=== PATIENT | female | born 1950 | race Caucasian/White ===

== ENCOUNTER 2019-09-05 00:55 | Day surgery (SDC) | payer MEDICARE, SELFPAY ==
[2019-08-30 14:41] VITALS: BMI 42.7
[2019-09-05 10:20] VITALS: BP 166/90; PULSE 80; RESP 20; TEMP 36.4; O2SAT 93
[2019-09-05] MEDS: LACTATED RINGERS 1,000 ML 150 ML IV CONT (10:32)
--- NOTE | 2019-09-05 10:38 | WPDANESEPPF ---
Anes - Initial Pre Proc Eval Procedure: Operation Date: 09/05/19 11:00 Proposed Procedures p Esophagogastroduodenoscopy - Jose Hagen DO Date/Time: 09/05/19 10:38 Surgeon: Jose Hagen DO Pre Op Diagnosis: Anemia/ Fatigue Patient Data Age: 69 Gender: F Height: 1.57 m Weight: 107.8 kg Last Vital Signs Temp 36.4 C 09/05/19 10:20 Pulse 80 09/05/19 10:20 Resp 20 09/05/19 10:20 BP 166/90 H 09/05/19 10:20 Pulse Ox 93 09/05/19 10:20 Allergies Allergy/AdvReac Type Severity Reaction Status Date / Time hydrocodone Allergy Mild Nausea and Verified 09/05/19 10:14 Vomiting doxycycline Allergy Unknown RASH Verified 09/05/19 10:14 levofloxacin Allergy Unknown HIVES Verified 09/05/19 10:14 moxifloxacin Allergy Unknown HIVES Verified 09/05/19 10:14 Home Medications Medication Instructions Recorded Confirmed Type montelukast 10 mg tablet 10 mg PO DAILY #90 tablet 05/14/19 09/05/19 Rx latanoprost 0.005 % eye drops 1 drop EACH EYE DAILY 06/20/19 09/05/19 History fluticasone 250 mcg-salmeterol 50 1 inhalation INHALATION BID #60 08/01/19 09/05/19 Rx mcg/dose blistr powdr for each inhalation ferrous sulfate 325 mg (65 mg See Rx Instructions .ROUTE 08/23/19 09/05/19 Rx iron) tablet .COMPLEX #60 tablet calcium carbonate-vitamin D3 600 1 cap PO .COMPLEX cap 08/28/19 09/05/19 History mg (1,500 mg)-400 unit capsule guaifenesin 1,200 mg tablet, 1,200 mg PO BID 08/28/19 09/05/19 History extended release 12 hr omeprazole magnesium 20 mg 20 mg PO DAILY 08/28/19 09/05/19 History tablet,delayed release psyllium husk [Metamucil] 1 tbsp PO BID 08/30/19 09/05/19 History acetaminophen 500 mg tablet 500 mg PO Q6H PRN 09/03/19 09/05/19 History albuterol sulfate 90 mcg/actuation 1 inhalation INHALATION Q4H PRN 30 09/03/19 09/05/19 Rx aerosol inhaler Days #8.5 gm magnesium 250 mg tablet 400 mg PO DAILY tablet 09/03/19 09/05/19 History prednisone 10 mg tablet 10 mg PO DAILY #30 tablet 09/03/19 09/05/19 Rx vitamin E (dl, acetate) 200 unit 200 unit PO DAILY 09/03/19 09/05/19 History capsule Patient hx anesthesia problems: none Family hx anesthesia problems: none PMF[facility] Past Medical History Medical History (Updated 09/05/19 @ 10:38 by Saul Leo DO) COPD (chronic obstructive pulmonary disease) Gastro-esophageal reflux disease without esophagitis CONSUELO on CPAP Prediabetes Unspecified glaucoma Surgical History Surgical History H/O breast biopsy H/O section H/O dilation and curettage Hx of tonsillectomy Social History Social History Smoking packs per day: 3 Smoking cigarettes per day: 60.0 Years smoked: 30 Smoking pack-years: 90.00 Smoking status: Former smoker Smoking end date: 06/26/05 Alcohol intake: current Anes - Eval Final PreProcedure Day of Procedure 09/05/19 10:38 Patient weight: morbidly obese Heart: regular rate and rhythm Lungs: clear to auscultation and normal air movement Airway: Mallampati scale class II Neurological: alert and oriented Last oral intake: >/= 8 hours ASA classification: III Emergent: no Anesthetic plan: proceed Anesthesia type and monitoring: general GIVS and standard monitoring Informed Consent: The patient's anesthetic plan and its attendant risks and benefits were discussed with the patient/family/POA. Questions were solicited and answers provided to the satisfaction of the patient/family/POA.
--- NOTE | 2019-09-05 11:27 | PM.IMHP ---
H&P: HPI History of Present Illness Chief complaint: Anemia/ Fatigue Narrative: Reason for visit EGD. This very pleasant lady was seen at the request of the primary physician and with the patient's permission. Impression: GERD with breakthrough symptoms. The patient has history of anemia. Underlying peptic ulcer disease should be excluded. Irritable bowel syndrome. COPD. Obstructive sleep apnea. Glaucoma. Obesity. Prediabetes. Recommendation: EGD and colonoscopy. History: This very pleasant lady's being evaluated for history reflux disease. She is having breakthrough symptoms at times. The patient was found have a significant iron deficiency anemia. An EGD and colonoscopy were ordered. The patient does have episodes of retching constipation diarrhea has been diagnosed with irritable bowel syndrome. She denies any hematochezia, melena or acholic stools. She was found to be Hemoccult negative. The patient denies any fever, chills or weight loss. She does report dysphagia number pharyngeal area. The patient does have difficulty with wheezing at times. Physical examination: General: very pleasant patient in no acute distress. HEENT: Head was normocephalic sclerae is clear mouth without masses neck was supple. Heart: Rate rhythm regular without S3 or S4. Lungs: Decreased breath sounds bilaterally with expiratory wheezes. Abdomen: Soft with no guarding or rigidity. Bowel sounds were active. Neurologic: Cranial nerves 2 through 12 intact. No focal defects. No clonus. Musculoskeletal system: Revealed no joint tenderness or swelling no muscle atrophy. Extremities: Reveal no significant edema. Skin: Warm and dry with normal turgor. Mental status: intact. Patient is alert and oriented. Want to thank for allowing to participate in the care of this patient. Review of Systems Review of Systems: All systems reviewed & are unremarkable except as noted in HPI and below [facility] Past Medical History Medical History (Updated 09/05/19 @ 10:38 by Saul Leo DO) COPD (chronic obstructive pulmonary disease) Gastro-esophageal reflux disease without esophagitis CONSUELO on CPAP Prediabetes Unspecified glaucoma Surgical History Surgical History H/O breast biopsy H/O section H/O dilation and curettage Hx of tonsillectomy Social History Social History Smoking packs per day: 3 Smoking cigarettes per day: 60.0 Years smoked: 30 Smoking pack-years: 90.00 Smoking status: Former smoker Smoking end date: 06/26/05 Alcohol intake: current Meds Home Medications and Allergies Home Medications Medication Instructions Recorded Confirmed Type montelukast 10 mg tablet 10 mg PO DAILY #90 tablet 05/14/19 09/05/19 Rx latanoprost 0.005 % eye drops 1 drop EACH EYE DAILY 06/20/19 09/05/19 History fluticasone 250 mcg-salmeterol 50 1 inhalation INHALATION BID #60 08/01/19 09/05/19 Rx mcg/dose blistr powdr for each inhalation ferrous sulfate 325 mg (65 mg See Rx Instructions .ROUTE 08/23/19 09/05/19 Rx iron) tablet .COMPLEX #60 tablet calcium carbonate-vitamin D3 600 1 cap PO .COMPLEX cap 08/28/19 09/05/19 History mg (1,500 mg)-400 unit capsule guaifenesin 1,200 mg tablet, 1,200 mg PO BID 08/28/19 09/05/19 History extended release 12 hr omeprazole magnesium 20 mg 20 mg PO DAILY 08/28/19 09/05/19 History tablet,delayed release psyllium husk [Metamucil] 1 tbsp PO BID 08/30/19 09/05/19 History acetaminophen 500 mg tablet 500 mg PO Q6H PRN 09/03/19 09/05/19 History albuterol sulfate 90 mcg/actuation 1 inhalation INHALATION Q4H PRN 30 09/03/19 09/05/19 Rx aerosol inhaler Days #8.5 gm magnesium 250 mg tablet 400 mg PO DAILY tablet 09/03/19 09/05/19 History prednisone 10 mg tablet 10 mg PO DAILY #30 tablet 09/03/19 09/05/19 Rx vitamin E (dl, acetat
[2019-09-05] MEDS: BENZOCAINE (*SP) 60 ML SPRAY CAN (HURRICAINE) 1 SPRAY MUCOUS MEM (11:41)
[2019-09-05 12:02] VITALS: BP 147/84; PULSE 83; RESP 25; O2SAT 90
[2019-09-05 12:12] VITALS: BP 138/76; PULSE 72; RESP 22; O2SAT 100
--- NOTE | 2019-09-05 12:14 | SUR.PHASEII ---
Patient placed on simple face mask to help with coughing fits, anesthesia aware. Per patient recovering from bronchitis.
[2019-09-05 12:22] VITALS: BP 150/85; PULSE 84; RESP 18; O2SAT 99
[2019-09-05 12:32] VITALS: BP 144/83; PULSE 76; RESP 22; O2SAT 99
== END 2019-09-05 12:44 | disposition home or self-care (01) ==
PROVIDERS: PCP Family Medicine; Visit Provider Internal Medicine Gastroenterology
PROC: 0DJ08ZZ Inspection of Upper Intestinal Tract, Via Natural or Artificial Opening Endoscopic (ICD-10-PCS; CPT 43235; principal; 2019-09-05 11:00)
DX: D50.9 Iron deficiency anemia, unspecified (principal); K31.7 Polyp of stomach and duodenum; K44.9 Diaphragmatic hernia without obstruction or gangrene; K21.9 Gastro-esophageal reflux disease without esophagitis; J44.9 Chronic obstructive pulmonary disease, unspecified; G47.33 Obstructive sleep apnea (adult) (pediatric); R73.03 Prediabetes; H40.9 Unspecified glaucoma; Z87.891 Personal history of nicotine dependence; E66.01 Morbid (severe) obesity due to excess calories; Z68.41 Body mass index [BMI] 40.0-44.9, adult
CPT/HCPCS: 43239; 43450; 87081; 88305; J2704; J7120

== ENCOUNTER 2019-12-03 00:24 | Outpatient (CLI) | payer MEDICARE, SELFPAY ==
[2019-12-03 18:58] LABS: SARS-CoV-2 RNA PCR Negative
== END 2019-12-03 00:25 | disposition home or self-care (01) ==
LOC: ANHCOVIDDT 00:24
PROVIDERS: PCP Family Medicine; Visit Provider Internal Medicine Gastroenterology
DX: Z01.812 Encounter for preprocedural laboratory examination (principal); Z20.828 Contact with and (suspected) exposure to other viral communicable diseases
CPT/HCPCS: 87635; C9803; U0003

== ENCOUNTER 2019-12-05 01:03 | Day surgery (SDC) | payer MEDICARE, SELFPAY ==
[2019-11-26 13:31] VITALS: BMI 42.5
[2019-12-05 07:49] VITALS: BMI 41.5
[2019-12-05 07:50] VITALS: BP 153/83; PULSE 87; RESP 22; TEMP 36.6; O2SAT 92
--- NOTE | 2019-12-05 08:02 | WPDANESEPPF ---
Anes - Initial Pre Proc Eval Procedure: Operation Date: 12/05/19 09:00 Proposed Procedures p Colonoscopy - Jose Hagen DO Date/Time: 12/05/19 08:02 Surgeon: Jose Hagen DO Pre Op Diagnosis: anemia, fatigue Patient Data Age: 69 Gender: F Height: 5 ft 3 in Weight: 106.4 kg Last Vital Signs Temp 97.9 F 12/05/19 07:50 Pulse 87 12/05/19 07:50 Resp 22 H 12/05/19 07:50 BP 153/83 H 12/05/19 07:50 Pulse Ox 92 12/05/19 07:50 Allergies Allergy/AdvReac Type Severity Reaction Status Date / Time hydrocodone Allergy Mild Nausea and Verified 12/05/19 07:47 Vomiting doxycycline Allergy Unknown RASH Verified 12/05/19 07:47 levofloxacin Allergy Unknown HIVES Verified 12/05/19 07:47 moxifloxacin Allergy Unknown HIVES Verified 12/05/19 07:47 Home Medications Medication Instructions Recorded Confirmed Type montelukast 10 mg tablet 10 mg PO DAILY #90 tablet 05/14/19 12/05/19 Rx latanoprost 0.005 % eye drops 1 drop EACH EYE DAILY 06/20/19 12/05/19 History fluticasone 250 mcg-salmeterol 50 1 inhalation INHALATION BID #60 08/01/19 12/05/19 Rx mcg/dose blistr powdr for each inhalation calcium carbonate-vitamin D3 600 2 cap PO DAILY cap 08/28/19 12/05/19 History mg (1,500 mg)-400 unit capsule guaifenesin 1,200 mg tablet, 1,200 mg PO BID 08/28/19 12/05/19 History extended release 12 hr omeprazole magnesium 20 mg 20 mg PO DAILY 08/28/19 12/05/19 History tablet,delayed release psyllium husk [Metamucil] 1 tbsp PO BID 08/30/19 12/05/19 History acetaminophen 500 mg tablet 1,000 mg PO Q6-12H PRN 09/03/19 12/05/19 History albuterol sulfate 90 mcg/actuation 1 inhalation INHALATION Q4H PRN 30 09/03/19 12/05/19 Rx aerosol inhaler Days #8.5 gm magnesium 250 mg tablet 400 mg PO DAILY tablet 09/03/19 12/05/19 History vitamin E (dl, acetate) 200 unit 200 unit PO DAILY 09/03/19 12/05/19 History capsule ferrous sulfate 325 mg PO DAILY 11/26/19 12/05/19 History Patient hx anesthesia problems: none Family hx anesthesia problems: none [facility] Past Medical History Medical History (Updated 09/05/19 @ 10:38 by Saul Leo DO) COPD (chronic obstructive pulmonary disease) Gastro-esophageal reflux disease without esophagitis CONSUELO on CPAP Prediabetes Unspecified glaucoma Surgical History Surgical History H/O breast biopsy H/O section H/O dilation and curettage Hx of tonsillectomy Social History Social History Smoking packs per day: 3 Smoking cigarettes per day: 60.0 Years smoked: 30 Smoking pack-years: 90.00 Smoking status: Former smoker Smoking end date: 06/26/05 Alcohol intake: current Gender identity (if verbalized by the patient): Female Anes - Eval Final PreProcedure Day of Procedure 12/05/19 08:02 Patient weight: morbidly obese Heart: regular rate and rhythm Lungs: clear to auscultation Airway: Mallampati scale class II Neurological: alert and oriented Last oral intake: >/= 8 hours ASA classification: III Emergent: no Anesthetic plan: proceed Anesthesia type and monitoring: general GIVS and standard monitoring Informed Consent: The patient's anesthetic plan and its attendant risks and benefits were discussed with the patient/family/POA. Questions were solicited and answers provided to the satisfaction of the patient/family/POA.
[2019-12-05] MEDS: LACTATED RINGERS 1,000 ML 150 ML IV CONT (08:09)
--- NOTE | 2019-12-05 08:22 | PM.IMHP ---
H&P: HPI History of Present Illness Chief complaint: anemia, fatigue Narrative: Reason for visit colonoscopy. Impression: Here have a very pleasant lady with anemia. She is here for colonoscopy to assess for underlying inflammatory neoplastic disease. Patient does have a history of adenomatous colon polyps. GERD well controlled on medication. IBS. COPD. CONSUELO. Glaucoma. Anemia. Recommendation: Colonoscopy. History: this very pleasant lady's being evaluated for anemia. She has a history adenomatous colon polyps. She has a history reflux disease. The patient also has remote history of IBS. At this time she is relatively asymptomatic with respect to any GI symptoms. Recent EGD was unremarkable except for a small hiatal hernia. The patient has a history of shortness of breath, dyspnea on exertion, wheezing and a chronic cough of clear sputum. This related to her COPD. She does complain of occasional dizziness. Fourteen point review systems otherwise negative. General: very pleasant patient in no acute distress. HEENT: Head was normocephalic sclerae is clear mouth without masses neck was supple. Heart: Rate rhythm regular without S3 or S4. Lungs: decreased breath sounds with expiratory wheezes. Abdomen: Soft with no guarding or rigidity. Bowel sounds were active. Neurologic: Cranial nerves 2 through 12 intact. No focal defects. No clonus. Musculoskeletal system: Revealed no joint tenderness or swelling no muscle atrophy. Extremities: Reveal no significant edema. Skin: Warm and dry with normal turgor. Mental status: intact. Patient is alert and oriented. [facility] Past Medical History Medical History (Updated 12/05/19 @ 08:22 by Jose Hagen DO) Adenomatous colon polyp COPD (chronic obstructive pulmonary disease) Gastro-esophageal reflux disease without esophagitis IBS (irritable bowel syndrome) Low bone mass CONSUELO on CPAP Prediabetes Unspecified glaucoma Surgical History Surgical History (Updated 12/05/19 @ 08:22 by Jose Hagen DO) H/O breast biopsy H/O section H/O colonoscopy H/O dilation and curettage History of esophagogastroduodenoscopy (EGD) Hx of tonsillectomy Social History Social History Smoking packs per day: 3 Smoking cigarettes per day: 60.0 Years smoked: 30 Smoking pack-years: 90.00 Smoking status: Former smoker Smoking end date: 06/26/05 Alcohol intake: current Gender identity (if verbalized by the patient): Female Meds Home Medications and Allergies Home Medications Medication Instructions Recorded Confirmed Type montelukast 10 mg tablet 10 mg PO DAILY #90 tablet 05/14/19 12/05/19 Rx latanoprost 0.005 % eye drops 1 drop EACH EYE DAILY 06/20/19 12/05/19 History fluticasone 250 mcg-salmeterol 50 1 inhalation INHALATION BID #60 08/01/19 12/05/19 Rx mcg/dose blistr powdr for each inhalation calcium carbonate-vitamin D3 600 2 cap PO DAILY cap 08/28/19 12/05/19 History mg (1,500 mg)-400 unit capsule guaifenesin 1,200 mg tablet, 1,200 mg PO BID 08/28/19 12/05/19 History extended release 12 hr omeprazole magnesium 20 mg 20 mg PO DAILY 08/28/19 12/05/19 History tablet,delayed release psyllium husk [Metamucil] 1 tbsp PO BID 08/30/19 12/05/19 History acetaminophen 500 mg tablet 1,000 mg PO Q6-12H PRN 09/03/19 12/05/19 History albuterol sulfate 90 mcg/actuation 1 inhalation INHALATION Q4H PRN 30 09/03/19 12/05/19 Rx aerosol inhaler Days #8.5 gm magnesium 250 mg tablet 400 mg PO DAILY tablet 09/03/19 12/05/19 History vitamin E (dl, acetate) 200 unit 200 unit PO DAILY 09/03/19 12/05/19 History capsule ferrous sulfate 325 mg PO DAILY 11/26/19 12/05/19 History Allergies Allergy/AdvReac Type Severity Reaction Status Date / Time hydrocodone Allergy Mild Nausea and Verified 12/05/19 07:47 Vomiting doxycycline Allergy Unknown RASH Verified
[2019-12-05 09:06] VITALS: BP 114/48; PULSE 75; RESP 28; O2SAT 94
[2019-12-05 09:16] VITALS: BP 122/68; PULSE 71; RESP 22; O2SAT 98
[2019-12-05 09:26] VITALS: BP 128/67; PULSE 67; RESP 19; O2SAT 99
[2019-12-05 09:53] LABS: Hematocrit 40.3 % (37.0-47.0); Hemoglobin 13.1 g/dL (12.0-15.0); Mean Corpuscular HGB Conc 32.5 g/dl (32-36); Mean Corpuscular Hemoglobin 30.9 pg (26-34); Mean Platelet Volume 9.7 fl (7.4-10.4); Platelet Count Result 261 k/mm3 (150-375); Red Blood Count 4.24 M/mm3 (4.2-5.4); Red Cell Distribution Width 13.9 % (11.5-14.5); White Blood Count 6.4 K/mm3 (4.5-10.0)
[2019-12-05 10:03] LABS: Prothrombin Time 13.3 Seconds (11.1-14.7)
[2019-12-05 10:04] LABS: Lactate Dehydrogenase 406 U/L (313-618); Magnesium 1.9 mg/dL (1.6-2.3); Phosphorus 4.5 mg/dL (2.5-4.5)
[2019-12-05 10:22] LABS: T4 Thyroxine 9.38 ug/dL (5.53-11.0)
[2019-12-05 10:30] LABS: Iron 81 ug/dL (37-170)
[2019-12-05 10:40] LABS: Percent Iron Saturation 24 % (20-50)
[2019-12-05 10:47] LABS: Free T4 Free Thyroxine 1.06 ng/mL (0.78-2.19)
[2019-12-05 11:22] LABS: Folic Acid > 20.0 ng/mL (2.76->20)
[2019-12-10 02:55] LABS: Haptoglobin 180 mg/dL (43-212)
== END 2019-12-05 09:56 | disposition home or self-care (01) ==
PROVIDERS: PCP Family Medicine; Visit Provider Internal Medicine Gastroenterology
PROC: 0DJD8ZZ Inspection of Lower Intestinal Tract, Via Natural or Artificial Opening Endoscopic (ICD-10-PCS; CPT 45378; principal; 2019-12-05 09:00)
DX: D64.9 Anemia, unspecified (principal); K64.8 Other hemorrhoids; Z86.010 Personal history of colon polyps; K58.2 Mixed irritable bowel syndrome; K21.9 Gastro-esophageal reflux disease without esophagitis; J44.9 Chronic obstructive pulmonary disease, unspecified; G47.33 Obstructive sleep apnea (adult) (pediatric); H40.9 Unspecified glaucoma; R73.03 Prediabetes; Z87.891 Personal history of nicotine dependence; E66.01 Morbid (severe) obesity due to excess calories; Z68.41 Body mass index [BMI] 40.0-44.9, adult
CPT/HCPCS: 45378; 36415; 82525; 82607; 82728; 82746; 83010; 83540; 83550; 83615; 83735; 84100; 84436; 84439; 85027; 85610; 86334; J2001; J2704; J7120

== ENCOUNTER 2020-01-30 01:42 | Outpatient (CLI) | payer MEDICARE, SELFPAY ==
--- NOTE | 2020-01-30 06:26 | SUR.OPER ---
Patient brought to GI Lab. Instructions for patient undergoing Capsule Endoscopy reviewed with patient. Consent form signed. Sensor array applied to patient's abdomen and connected to recorded. Patient swallowed capsule with 8 ozs of water infused with Simethicone. Patient instructed they may have clear liquids at 0830 this AM and eat or drink at 1030 this AM. Patient instructed to return to GI Lab at 1500 this afternoon for removal of recording device and to call [phone] or to return to the hospital if any nausea and vomiting or abdominal pain is experienced.
--- NOTE | 2020-01-30 15:17 | SUR.OPER ---
1445 patient arrived and givens capsule monitor removed without difficulty by Mary Jane/clint. Pt instructed on post G[employer] Capsule instructions. patient verbalized understanding. per Jack. Sherlyn docking monitor.
== END 2020-01-30 01:43 | disposition home or self-care (01) ==
PROVIDERS: PCP Family Medicine; Visit Provider Internal Medicine Gastroenterology
PROC: 0DJ07ZZ Inspection of Upper Intestinal Tract, Via Natural or Artificial Opening (ICD-10-PCS; CPT 91110; principal; 2020-01-30 07:00)
DX: Z12.10 Encounter for screening for malignant neoplasm of intestinal tract, unspecified (principal); K29.70 Gastritis, unspecified, without bleeding
CPT/HCPCS: 91110

== ENCOUNTER 2020-03-17 10:43 | Outpatient (CLI) | payer MEDICARE, SELFPAY ==
[2020-03-17 11:48] LABS: Basophils Absolute Auto 0.1 K/mm3 (0.0-0.1); Basophils Percent Auto 1.2 % (0.2-1.2); Eosinophils Absolute Auto 0.2 K/mm3 (0-0.3); Eosinophils Percent Auto 2.8 % (0-4.4); Hematocrit 41.9 % (37.0-47.0); Hemoglobin 13.7 g/dL (12.0-15.0); Immature Granulocyte Absolute 0.03 K/mm3 (0.00-0.031); Immature Granulocyte Percent A 0.4 % (0-0.5); Lymphocytes Absolute Auto 2.06 K/mm3 (0.9-3.2); Lymphocytes Percent Auto 28.6 % (18.3-44.2); Mean Corpuscular HGB Conc 32.7 g/dl (32-36); Mean Corpuscular Hemoglobin 31.6 pg (26-34); Mean Corpuscular Volume 96.8 fl (80-100); Mean Platelet Volume 9.6 fl (7.4-10.4); Monocytes Absolute Auto 0.6 K/mm3 (0.1-0.6); Monocytes Percent Auto 8.9 % (2.6-8.5); Neutrophils Absolute Auto 4.2 K/mm3 (1.3-6.7); Neutrophils Percent Auto 58.1 % (45.5-73.1); Platelet Count Result 314 k/mm3 (150-375); Red Blood Count 4.33 M/mm3 (4.2-5.4); White Blood Count 7.2 K/mm3 (4.5-10.0)
== END 2020-03-17 10:44 | disposition home or self-care (01) ==
PROVIDERS: PCP Family Medicine; Referring Provider Internal Medicine Gastroenterology; Visit Provider Family Medicine
DX: K92.2 Gastrointestinal hemorrhage, unspecified (principal); R60.9 Edema, unspecified
CPT/HCPCS: 36415; 85025

== ENCOUNTER 2020-03-20 06:51 | Outpatient (CLI) | payer MEDICARE, SELFPAY ==
--- NOTE | ~2020-03-20 | CT_ITS ---
EXAMINATION: CT chest high resolution wo nj DATE: 03/20/2020 07:17 INDICATION: Pulmonary fibrosis. TECHNIQUE: Computed tomography (CT) of the chest was performed without intravenous contrast. The dose -length product was 424.20 mGy-cm. Automated exposure control and iterative reconstruction technique were employed. COMPARISON: None FINDINGS: There are enlarged pulmonary arteries consistent with pulmonary arterial hypertension. Smal l hiatal hernia. Heart size normal. No significant pleural or pericardial effusion. No significant th oracic lymphadenopathy. There is extensive course interstitial changes with areas of bronchiectasis, peribronchial thickening, interlobular septal thickening and honeycombing. IMPRESSION: 1. Extensive interstitial lung disease with a pattern consistent with usual interstitial pneumonia. D ifferential diagnosis includes nonspecific interstitial pneumonia, hypersensitivity pneumonitis and l ess likely etiology such as sarcoidosis and drug-induced lung disease. 2: Enlarged pulmonary arteries consistent with pulmonary arterial hypertension. Reviewed, dictated and finalized at location A. IMPRESSION: 1. Extensive interstitial lung disease with a pattern consistent with usual int erstitial pneumonia. Differential diagnosis includes nonspecific interstitial p neumonia, hypersensitivity pneumonitis and less likely etiology such as sarcoid osis and drug-induced lung disease. 2: Enlarged pulmonary arteries consistent with pulmonary arterial hypertension .
== END 2020-03-20 06:52 | disposition home or self-care (01) ==
PROVIDERS: PCP Family Medicine; Visit Provider Internal Medicine Critical Care Medicine
DX: J84.10 Pulmonary fibrosis, unspecified (principal)
CPT/HCPCS: 71250

== ENCOUNTER 2020-04-17 08:30 | Outpatient (CLI) | payer MEDICARE, SELFPAY ==
--- NOTE | 2020-04-17 08:48 | ECHO_ITS ---
Patient Info Name: Bia Arciniega Age: 70 years : 1950 Gender: Female Ht: 62 in Wt: 230 lbs BSA: 2.20 m2 HR: 72 bpm BP: 157 / 84 mmHg Technical Quality: Good Exam Date: 04/17/2020 9:00 AM Exam Location: [facility] Patient Status: Outpatient Admit Date: 04/17/2020 Staff Ordering Physician: Daja Santana MD Field Assessor: Farrah Lopez RDCS Attending Provider: Daja Santana MD Referring Physician: Max WYNN; Exam Type: CA echo doppler color flow Study Info Indications - wheezing Complete two-dimensional, color flow and Doppler transthoracic echocardiogram is performed. Summary 1. Complete two-dimensional, color flow and Doppler transthoracic echocardiogram is performed. 2. Left ventricular chamber dimension is normal. 3. Left ventricular systolic function is normal, estimated at 60-65%. 4. There is mildly increased left ventricular wall thickness. 5. The left ventricular diastolic function is grade I diastolic dysfunction. 6. Global longitudinal strain is abnormal at -14.8%. 7. Left atrial chamber dimension is mildly enlarged. 8. Right atrial chamber dimension is mildly enlarged. 9. There is trace tricuspid valve regurgitation. 10. No pulmonary hypertension, estimated pulmonary arterial systolic pressure is 25 mmHg. Left Ventricle Tissue doppler E/e' is not calculated. Global longitudinal strain is abnormal at -14.8%. Left ventricular chamber dimension is normal. Left ventricular systolic function is normal, estimated at 60-65%. There is mildly increased left ventricular wall thickness. The left ventricular diastolic function is grade I diastolic dysfunction. Right Ventricle Right ventricular systolic function is normal with normal TAPSE 2.0 cm. Right ventricular chamber dimension is normal. Left Atria Left atrial chamber dimension is mildly enlarged. Right Atria Right atrial chamber dimension is mildly enlarged. Aortic Valve The aortic valve is trileaflet. There is no aortic valve stenosis. There is no aortic valve regurgitation. Pulmonic Valve There is no pulmonic regurgitation. Mitral Valve There is no mitral valve stenosis. There is no mitral valve regurgitation. Tricuspid Valve There is trace tricuspid valve regurgitation. No pulmonary hypertension, estimated pulmonary arterial systolic pressure is 25 mmHg. Pericardium/Pleural There is no pericardial effusion. Inferior Vena Cava Normal inferior vena cava with >50% collapse upon inspiration consistent with normal right atrial pressure, 5 mmHg. Aorta The aortic root size at the sinus of Valsalva is normal. Left Ventricular Outflow Tract Name Value Normal LVOT 2D LVOT Diameter 2.0 cm LVOT Doppler LVOT Peak Gradient 4 mmHg LVOT Mean Gradient 2 mmHg LVOT VTI 22 cm LVOT VTI/AV VTI Ratio 1.0 LVOT Stroke Volume 66 ml LVOT CO 12.0 l/min LVOT CI 5.5 l/min/m2 Pulmonic V
--- NOTE | 2020-04-20 09:32 | WPDPFTINT ---
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 There has been a significant decline in TLC from 92% to 70% over two years. Clinical correlation is advised.
== END 2020-04-17 08:31 | disposition home or self-care (01) ==
PROVIDERS: PCP Family Medicine; Visit Provider Internal Medicine Critical Care Medicine
DX: J44.9 Chronic obstructive pulmonary disease, unspecified (principal); R06.2 Wheezing; R94.2 Abnormal results of pulmonary function studies
CPT/HCPCS: 87070; 87205; 93306; 94375; 94726; 94729

== ENCOUNTER 2020-04-27 10:45 | Outpatient (RCR) | payer MEDICARE, SELFPAY | END 2020-06-09 23:59 | disposition home or self-care (01) | LOC: ANHLAB 10:45 | PROVIDERS: PCP Family Medicine; Referring Provider Nurse Practitioner Family; Visit Provider Internal Medicine Critical Care Medicine | DX: J44.9 Chronic obstructive pulmonary disease, unspecified (principal) | CPT/HCPCS: 36415; 85025; 87015; 87070; 87077; 87102; 87116; 87186; 87205; 87206 ==

== ENCOUNTER → 2020-08-03 01:05 | Outpatient (CLI) | payer MEDICARE, SELFPAY ==
[2020-08-03 18:27] LABS: SARS-CoV-2 RNA PCR Negative
== END ==
PROVIDERS: PCP Family Medicine; Visit Provider Internal Medicine Gastroenterology
DX: Z01.812 Encounter for preprocedural laboratory examination (principal); Z20.822 Contact with and (suspected) exposure to COVID-19
CPT/HCPCS: C9803; U0003; U0005

== ENCOUNTER 2020-08-06 00:50 | Day surgery (SDC) | payer MEDICARE, SELFPAY ==
[2020-07-16 14:12] VITALS: BMI 40.6
[2020-08-06 07:18] VITALS: BP 144/90; PULSE 86; RESP 22; TEMP 36.2; O2SAT 95
[2020-08-06] MEDS: LACTATED RINGERS 1,000 ML 150 ML IV CONT (07:27)
--- NOTE | 2020-08-06 08:01 | WPDANESEPPF ---
Anes - Initial Pre Proc Eval Procedure: Operation Date: 08/06/20 08:30 Proposed Procedures p Colonoscopy - Jose Hagen DO Date/Time: 08/06/20 08:01 Surgeon: Jose Hagen DO Pre Op Diagnosis: Anemia Patient Data Age: 70 Gender: F Height: 1.59 m Weight: 103 kg Last Vital Signs Temp 36.2 C L 08/06/20 07:18 Pulse 86 08/06/20 07:18 Resp 22 H 08/06/20 07:18 BP 144/90 H 08/06/20 07:18 Pulse Ox 95 08/06/20 07:18 Allergies Allergy/AdvReac Type Severity Reaction Status Date / Time hydrocodone Allergy Mild Nausea and Verified 08/06/20 07:15 Vomiting doxycycline Allergy Unknown RASH Verified 08/06/20 07:15 levofloxacin Allergy Unknown HIVES Verified 08/06/20 07:15 moxifloxacin Allergy Unknown HIVES Verified 08/06/20 07:15 Home Medications Medication Instructions Recorded Confirmed Type latanoprost 0.005 % eye drops 1 drop EACH EYE DAILY 06/20/19 07/16/20 History calcium carbonate-vitamin D3 600 2 cap PO DAILY cap 08/28/19 07/16/20 History mg (1,500 mg)-400 unit capsule guaifenesin 1,200 mg tablet, 1,200 mg PO BID 08/28/19 07/16/20 History extended release 12 hr omeprazole magnesium 20 mg 20 mg PO DAILY 08/28/19 07/16/20 History tablet,delayed release psyllium husk [Metamucil] 1 tbsp PO BID 08/30/19 07/16/20 History acetaminophen 500 mg tablet 1,000 mg PO Q6-12H PRN 09/03/19 07/16/20 History albuterol sulfate 90 mcg/actuation 1 inhalation INHALATION Q4H PRN 30 09/03/19 07/16/20 Rx aerosol inhaler Days #8.5 gm magnesium 250 mg tablet 400 mg PO DAILY tablet 09/03/19 07/16/20 History vitamin E (dl, acetate) 200 unit 200 unit PO DAILY 09/03/19 07/16/20 History capsule fluticasone 250 mcg-salmeterol 50 1 inhalation INHALATION BID 30 02/06/20 08/06/20 Rx mcg/dose blistr powdr for Days #60 each inhalation ferrous sulfate 325 mg (65 mg 325 mg PO DAILY #90 tablet 02/17/20 07/16/20 Rx iron) tablet Patient hx anesthesia problems: none Family hx anesthesia problems: none [facility] Past Medical History Medical History Adenomatous colon polyp COPD (chronic obstructive pulmonary disease) Gastro-esophageal reflux disease without esophagitis IBS (irritable bowel syndrome) Low bone mass CONSUELO on CPAP Prediabetes Unspecified glaucoma Wheezing Surgical History Surgical History H/O breast biopsy H/O section H/O colonoscopy H/O dilation and curettage History of esophagogastroduodenoscopy (EGD) Hx of tonsillectomy Family History Family History Sibling Diabetes mellitus Hypertension Family history of elevated blood lipids Family history of obesity Family history of sleep apnea Family history of pancreatic cancer Grandparent Family history of glaucoma Cerebrovascular accident Mother Family history of elevated blood lipids Father Family history of elevated blood lipids, Onset Age: 35 Family history of lung cancer Social History Social History Smoking packs per day: 3 Smoking cigarettes per day: 60.0 Years smoked: 30 Smoking pack-years: 90.00 Smoking status: Former smoker Tobacco type: cigarettes Smoking end date: 06/26/05 Alcohol intake: current Substance use: unknown Substance use type: does not use Living arrangements: with family Gender identity (if verbalized by the patient): Female Spiritual care concerns: No Anes - Eval Final PreProcedure Day of Procedure 08/06/20 08:01 Patient weight: morbidly obese Heart: regular rate and rhythm Lungs: clear to auscultation and normal air movement Airway: Mallampati scale class II Neurological: alert and oriented Last oral intake: >/= 8 hours ASA classification: III Emergent: no Anesthetic plan: proceed Anesthesia type and monitoring: general
--- NOTE | 2020-08-06 08:48 | WPDGICN ---
GI Consult Note Consult date/time: 08/06/20 08:48 HPI: Reason for visit is colonoscopy. This very pleasant lady seen in consultation request of the primary physician. Impression: This very pleasant lady that is here for colonoscopy. She has a history adenomatous colon polyps. She was noted to be iron deficient. GERD well controlled on medication. COPD. Pulmonary fibrosis. Alpha 1 antitrypsin deficiency. CONSUELO. Obesity. Glaucoma. Recommendation: Colonoscopy. History: This very pleasant lady has a history adenomatous colon polyps. She was iron deficient. She does have a history of reflux disease well controlled on medication. GE review systems otherwise unremarkable. Patient has significant shortness of breath, dyspnea exertion and wheezing. This could be due to underlying respiratory problems. Physical examination: General: very pleasant patient in no acute distress. HEENT: Head was normocephalic sclerae is clear mouth without masses neck was supple. Heart: Rate rhythm regular without S3 or S4. Lungs: Decreased breath sounds bilaterally with expiratory wheezes. Abdomen: Soft with no guarding or rigidity. Bowel sounds were active. Neurologic: Cranial nerves 2 through 12 intact. No focal defects. No clonus. Musculoskeletal system: Revealed no joint tenderness or swelling no muscle atrophy. Extremities: Reveal no significant edema. Skin: Warm and dry with normal turgor. Mental status: intact. Patient is alert and oriented. Review of Systems Review of Systems: All systems reviewed & are unremarkable except as noted in HPI and below PMFSH Past Medical History Medical History Adenomatous colon polyp COPD (chronic obstructive pulmonary disease) Gastro-esophageal reflux disease without esophagitis IBS (irritable bowel syndrome) Low bone mass CONSUELO on CPAP Prediabetes Unspecified glaucoma Wheezing Surgical History Surgical History H/O breast biopsy H/O section H/O colonoscopy H/O dilation and curettage History of esophagogastroduodenoscopy (EGD) Hx of tonsillectomy Family History Family History Sibling Diabetes mellitus Hypertension Family history of elevated blood lipids Family history of obesity Family history of sleep apnea Family history of pancreatic cancer Grandparent Family history of glaucoma Cerebrovascular accident Mother Family history of elevated blood lipids Father Family history of elevated blood lipids, Onset Age: 35 Family history of lung cancer Social History Social History Smoking packs per day: 3 Smoking cigarettes per day: 60.0 Years smoked: 30 Smoking pack-years: 90.00 Smoking status: Former smoker Tobacco type: cigarettes Smoking end date: 06/26/05 Alcohol intake: current Substance use: unknown Substance use type: does not use Living arrangements: with family Gender identity (if verbalized by the patient): Female Spiritual care concerns: No Meds Home Medications and Allergies Home Medications Medication Instructions Recorded Confirmed Type latanoprost 0.005 % eye drops 1 drop EACH EYE DAILY 06/20/19 07/16/20 History calcium carbonate-vitamin D3 600 2 cap PO DAILY cap 08/28/19 07/16/20 History mg (1,500 mg)-400 unit capsule guaifenesin 1,200 mg tablet, 1,200 mg PO BID 08/28/19 07/16/20 History extended release 12 hr omeprazole magnesium 20 mg 20 mg PO DAILY 08/28/19 07/16/20 History tablet,delayed release psyllium husk [Metamucil] 1 tbsp PO BID 08/30/19 07/16/20 History acetaminophen 500 mg tablet 1,000 mg PO Q6-12H PRN 09/03/19 07/16/20 History albuterol sulfate 90 mcg/actuation 1 inhalation INHALATION Q4H PRN 30 09/03/19 07/16/20 Rx aerosol inha
[2020-08-06 09:16] VITALS: BP 103/64; PULSE 75; RESP 23; O2SAT 98
[2020-08-06 09:26] VITALS: BP 116/71; PULSE 71; RESP 23; O2SAT 99
[2020-08-06 09:36] VITALS: BP 133/78; PULSE 84; RESP 20; O2SAT 98
[2020-08-06 09:46] VITALS: BP 139/76; PULSE 67; RESP 20; O2SAT 100
[2020-08-06 09:57] LABS: Hematocrit 39.7 % (37.0-47.0); Hemoglobin 13.1 g/dL (12.0-15.0); Mean Corpuscular Hemoglobin 32.3 pg (26-34); Mean Platelet Volume 9.4 fl (7.4-10.4); Platelet Count Result 243 k/mm3 (150-375); Red Blood Count 4.05 M/mm3 (4.2-5.4); Red Cell Distribution Width 13.3 % (11.5-14.5); White Blood Count 6.2 K/mm3 (4.5-10.0)
[2020-08-06 10:13] LABS: Lactate Dehydrogenase 374 U/L (313-618)
[2020-08-06 10:31] LABS: T4 Thyroxine 9.37 ug/dL (5.53-11.0)
[2020-08-06 10:44] LABS: Iron 61 ug/dL (37-170)
[2020-08-06 10:53] LABS: Percent Iron Saturation 19 % (20-50)
[2020-08-06 11:20] LABS: Folic Acid > 20.0 ng/mL (2.76->20)
[2020-08-06 12:31] LABS: Folic Acid > 20.0 ng/mL (2.76->20)
[2020-08-09 18:56] LABS: Erythropoietin (EPO) 8.8 mIU/mL (2.6-18.5)
[2020-08-09 21:22] LABS: Haptoglobin 166 mg/dL (43-212)
== END 2020-08-06 10:18 | disposition home or self-care (01) ==
PROVIDERS: PCP Family Medicine; Visit Provider Internal Medicine Gastroenterology
PROC: 0DJD8ZZ Inspection of Lower Intestinal Tract, Via Natural or Artificial Opening Endoscopic (ICD-10-PCS; CPT 45378; principal; 2020-08-06 08:30)
DX: D50.9 Iron deficiency anemia, unspecified (principal); D12.2 Benign neoplasm of ascending colon; K21.9 Gastro-esophageal reflux disease without esophagitis; R06.09 Other forms of dyspnea; J44.9 Chronic obstructive pulmonary disease, unspecified; E88.01 Alpha-1-antitrypsin deficiency; J84.10 Pulmonary fibrosis, unspecified; G47.33 Obstructive sleep apnea (adult) (pediatric); H40.9 Unspecified glaucoma; E66.01 Morbid (severe) obesity due to excess calories; Z68.41 Body mass index [BMI] 40.0-44.9, adult; K58.9 Irritable bowel syndrome, unspecified; R73.03 Prediabetes; Z87.891 Personal history of nicotine dependence
CPT/HCPCS: 45380; 36415; 82525; 82607; 82668; 82728; 82746; 83010; 83540; 83550; 83615; 84436; 84443; 85027; 86334; 88305; J2704; J7120

== ENCOUNTER 2022-04-22 13:30 | Outpatient (RCR) | payer MEDICARE, SELFPAY | END 2022-04-22 23:59 | disposition home or self-care (01) | LOC: ANHCPREHAB 13:30 | PROVIDERS: PCP Family Medicine | DX: J84.9 Interstitial pulmonary disease, unspecified (principal); J96.11 Chronic respiratory failure with hypoxia | CPT/HCPCS: 94625; G0239 ==

== ENCOUNTER 2022-05-03 13:56 | Outpatient (RCR) | payer MEDICARE, SELFPAY | END 2022-05-03 16:15 | disposition home or self-care (01) | LOC: ANHCPREHAB 13:56 | PROVIDERS: PCP Family Medicine | DX: J84.9 Interstitial pulmonary disease, unspecified (principal); J96.11 Chronic respiratory failure with hypoxia | CPT/HCPCS: G0239 ==